=== PATIENT | female | born 1980 | race Caucasian/White ===

== ENCOUNTER 2017-04-10 08:00 | Emergency (ER) | payer OTHER, MEDICAID ==
[~2017-04-10] VITALS: Ht 157.5 cm; Wt 80.0 kg
[~2017-04-10 08:00] MED LIST: FERR324T8 PO; HYDR-3240 PO; IBUP-1222 PO; SENN8.6C2 PO
[2017-04-10] MEDS ORDERED: ASPI-691 PO (08:17)
[2017-04-10] MEDS ORDERED: SUMA50TA4 PO (08:17)
[2017-04-10] MEDS ORDERED: FAMOTIDINE 20 MG/2 ML ONE (08:26)
[2017-04-10] MEDS ORDERED: ONDANSETRON 2MG/ML, 2ML ONE (08:26)
[2017-04-10 08:28] LABS: HEMATOCRIT 41.5 % (34.6-47.8); WHITE BLOOD COUNT 15.5 x10^3/uL (3.4-10)
[2017-04-10] MEDS ORDERED: FAMOTIDINE 20 MG/2 ML IVP ONE (08:30)
[2017-04-10] MEDS ORDERED: ONDANSETRON 2MG/ML, 2ML IVPush ONE (08:30)
[2017-04-10] MEDS ORDERED: SODIUM CHLORIDE FLUSH 10ML SYR IVF ONE (08:30)
[2017-04-10] MEDS ORDERED: SODIUM CHLORIDE 0.9% 1,000ML IVBOLUS ONE (08:30)
[2017-04-10 08:40] LABS: BLOOD UREA NITROGEN 9 mg/dL (7-18)
[2017-04-10 08:46] LABS: ASPARTATE AMINO TRANSFERASE 104 U/L (15-37)
[2017-04-10 09:36] VITALS: BP 128/78
== END 2017-04-10 09:49 | disposition home or self-care (01) ==
LOC: ED 09:35
DX: K29.00 Acute gastritis without bleeding (principal)
CPT/HCPCS: 36415; 76700; 80053; 83690; 84703; 85025; 96361; 96374; 96375; 99285; J2405; J7030; S0028